=== PATIENT | female | born 2000 | race Caucasian/White ===

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

== ENCOUNTER 2018-06-18 17:39 | Emergency (ER) | payer OTHER ==
[2018-06-18 18:01] VITALS: BP 131/61; PULSE 80; TEMP 98.8; BMI 26.0
[2018-06-18 18:25] LABS: URINE APPEARANCE CLEAR; URINE BILIRUBIN NEGATIVE (<2.0 mg/dL); URINE COLOR LTYELLOW; URINE GLUCOSE (UA) NEGATIVE (NEGATIVE); URINE KETONE NEGATIVE (NEGATIVE); URINE LEUK ESTERASE NEGATIVE (NEGATIVE); URINE NITRITE NEGATIVE (NEGATIVE); URINE PROTEIN NEGATIVE (NEGATIVE); URINE UROBILINOGEN NEGATIVE mg/dL (0.2-1.0)
--- NOTE | 2018-06-18 19:33 | PDOC ---
History of Present Illness - General Chief Complaint: Urinary Problem Stated Complaint: Urinary Problem Time Seen by Provider: 06/18/18 19:08 History Source: Patient Exam Limitations: No Limitations - History of Present Illness Travel History: No Timing/Duration: reports: getting worse Quality: reports: mild, cramping, sharpness Abdominal Pain Onset Location: reports: suprapubic Pain Radiation: reports: no radiation Past History - Travel Traveled outside of the country in the last 30 days: No Close contact w/someone who was outside of country & ill: No - Past Medical History Allergies/Adverse Reactions: Allergies Allergy/AdvReac Type Severity Reaction Status Date / Time fruit Allergy Hives Uncoded 06/18/18 18:00 Home Medications: Ambulatory Orders Nitrofurantoin Monohyd/M-Cryst [Macrobid -] 100 mg PO BID #14 capsule 06/18/18 COPD: No - Suicide/Smoking/Psychosocial Hx Smoking History: Never smoked Have you smoked in the past 12 months: No Hx Alcohol Use: No Drug/Substance Use Hx: No Substance Use Type: None Review of Systems - Review of Systems Able to Perform ROS?: Yes Is the patient limited Yoruba proficient: Yes Constitutional: Yes: See HPI. No: Symptoms Reported, Chills, Fever HEENTM: Yes: See HPI. No: Symptoms Reported Respiratory: Yes: See HPI. No: Symptoms reported : Yes: Symptoms Reported, See HPI, Dysuria, Frequency, Urgency. No: Flank Pain, Hematuria Musculoskeletal: No: Symptoms Reported Integumentary: No: Symptoms Reported All Other Systems: Reviewed and Negative *Physical Exam - Vital Signs Last Vital Signs Temp Pulse Resp BP Pulse Ox 98.8 F 80 18 131/61 99 06/18/18 17:59 06/18/18 17:59 06/18/18 17:59 06/18/18 17:59 06/18/18 17:59 - Physical Exam General Appearance: Yes: Nourished, Appropriately Dressed HEENT: positive: GERTRUDE, Normal ENT Inspection, TMs Normal, Pharynx Normal Neck: positive: Supple. negative: Tender, Lymphadenopathy (R), Lymphadenopathy (L) Respiratory/Chest: positive: Lungs Clear, Normal Breath Sounds Gastrointestinal/Abdominal: positive: Soft. negative: Tender, Organomegaly Extremity: positive: Normal Capillary Refill Integumentary: positive: Normal Color, Pale ED Treatment Course - ADDITIONAL ORDERS Additional order review: Laboratory Results 06/18/18 06/18/18 18:15 18:15 Urine Color Ltyellow Urine Appearance Clear Urine pH 6.0 Ur Specific Dauphin 1.012 Urine Protein Negative Urine Glucose (UA) Negative Urine Ketones Negative Urine Blood Negative Urine Nitrite Negative Urine Bilirubin Negative Urine Urobilinogen Negative Ur Leukocyte Esterase Negative Urine HCG, Qual Negative Progress Note - Progress Note Progress Note: Fingerstick 83 urinalysis negative for any obvious pathology. Due to patient's symptomatology and history we'll give watch and wait Macrobid prescription. Patient agrees will call tomorrow for preliminary results of culture, justifying need for antibiotic use otherwise will follow-up with PMD this week for thorough exam and other studies if symptoms persist *DC/Admit/Observation/Transfer Diagnosis at time of Disposition: Dysuria - Discharge Dispostion Disposition: HOME Condition at time of disposition: Stable Decision to Admit order: No - Referrals - Patient Instructions Printed Discharge Instructions: DI for Dysuria -- Adult Additional Instructions: Rest, drink lots of fluids: Teas, water, soups Avoid contact with others until fevers and symptoms resolved Lots of handwashing and good hygiene Continue [id number] medications for symptomatic relief Tylenol or Motrin for fever and pain Call emergency department in 2 days for preliminary results of microbiology, if positive for urinary tract infection will prescribe antibiotic Followup with private physician in one week for repeat urinalysis/reevaluation Return to emergency department for worsened symptoms, fevers, dehydration - Post Discharge Activity Forms/Work/School Notes: Back to Work
== END 2018-06-18 20:12 | disposition home or self-care (01) ==
LOC: JERFT 17:39
DX: R30.0 Dysuria (principal)
CPT/HCPCS: 81003; 82962; 84703; 87086; 87186; 99281-25